=== PATIENT | female | born 1965 | race Caucasian/White ===

== ENCOUNTER 2017-01-01 11:37 | Outpatient (CLI) | payer BC ==
[~2017-01-01] VITALS: Ht 167.6 cm; Wt 100.2 kg
[~2017-01-01 11:37] MED LIST: LEVO137T2 PO; VITA100067 PO; VITA500T PO
[2017-01-01] MEDS ORDERED: NS 1,000 ML IV SCH (12:45)
[2017-01-01] MEDS ORDERED: PROPOFOL 200 MG/20 ML VIAL As Ordered ONE ×2 (13:45→13:59)
[2017-01-01] MEDS ORDERED: LIDOCAINE 2% INJ 100 MG/5 ML SDV (FOR ANES.) As Ordered ONE (13:45)
--- NOTE | 2017-01-01 14:01 | ROOR ---
Patient Name: Stephanie Sun Procedure Date: 01/01/2017 1:46 PM Date of : 1965 Age: 51 Room: [facility] Gender: Female Note Status: Finalized Procedure: Colonoscopy Indications: Screening for colorectal malignant neoplasm Providers: Elmer THOMPSON MD Referring MD: DORINA PARK DO Requesting Provider: Medicines: Monitored Anesthesia Care Complications: No immediate complications. Procedure: Pre-Anesthesia Assessment: - The heart rate, respiratory rate, oxygen saturations, blood pressure, adequacy of pulmonary ventilation, and response to care were monitored throughout the procedure. The Colonoscope was introduced through the anus and advanced to the terminal ileum, with identification of the appendiceal orifice and IC valve. The colonoscopy was performed without difficulty. The patient tolerated the procedure well. The quality of the bowel preparation was good. Findings: The perianal and digital rectal examinations were normal. (Exam: Complete, Prep: Good or Excellent.) Mild diverticulosis and small internal hemorrhoids. The entire examined colon appeared normal on direct and retroflexion views. Impression: - (Exam: Complete, Prep: Good or Excellent.) - Mild diverticulosis and small internal hemorrhoids. - The entire examined colon is normal on direct and retroflexion views. - No specimens collected. Recommendation: - Repeat colonoscopy in 10 years for screening purposes. Elmer Thompson MD Elmer THOMPSON MD 01/01/2017 2:01:30 PM This report has been signed electronically. Number of Addenda: 0 Note Initiated On: 01/01/2017 1:46 PM Estimated Blood Loss: Estimated blood loss: none.
[2017-01-01 14:20] VITALS: BP 156/90
== END 2017-01-01 14:30 | disposition home or self-care (01) ==
LOC: M OPP 11:37
PROVIDERS: ATTEND Internal Medicine Gastroenterology
DX: Z12.11 Encounter for screening for malignant neoplasm of colon (principal); K57.30 Diverticulosis of large intestine without perforation or abscess without bleeding; K64.8 Other hemorrhoids; E03.9 Hypothyroidism, unspecified; R60.0 Localized edema; Z78.0 Asymptomatic menopausal state; F17.210 Nicotine dependence, cigarettes, uncomplicated; Z79.899 Other long term (current) drug therapy; Z80.41 Family history of malignant neoplasm of ovary

== ENCOUNTER → 2019-02-02 | Outpatient (CLI) | payer OTHER ==
[~2019-02-02] MED LIST changes: +LEVO150T7 PO; +MELO15TA28 PO
--- NOTE | 2019-02-02 09:14 | ECGEPIP ---
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
== END ==
LOC: M EKG 08:38
PROVIDERS: ATTEND Anesthesiology
DX: Z01.818 Encounter for other preprocedural examination (principal); E03.9 Hypothyroidism, unspecified; L40.9 Psoriasis, unspecified

== ENCOUNTER 2019-02-06 11:58 | Day surgery (SDC) | payer OTHER ==
[~2019-02-06] VITALS: Ht 198.1 cm; Wt 107.0 kg
[~2019-02-06 11:58] MED LIST changes: +LR 1,000 ML IV ONE
[2019-02-06] MEDS ORDERED: BUPIVACAINE/EPIN 0.25% 30 ML VIAL As Ordered ONE (16:27)
[2019-02-06] MEDS ORDERED: LIDOCAINE 2% INJ 100 MG/5 ML SDV (FOR ANES.) As Ordered ONE (16:47)
[2019-02-06] MEDS ORDERED: fentaNYL 250 MCG/5 ML INJECTION (J3010) As Ordered ONE (16:47)
[2019-02-06] MEDS ORDERED: METOCLOPRAMIDE INJ 10MG/2ML VIAL (J2765) As Ordered ONE (16:47)
[2019-02-06] MEDS ORDERED: PROPOFOL 200 MG/20 ML VIAL As Ordered ONE (16:47)
[2019-02-06] MEDS ORDERED: dexameTHASONE 4 MG/ML 1ML VIAL (J1100) As Ordered ONE (16:47)
[2019-02-06] MEDS ORDERED: ONDANSETRON 4MG/2ML VIAL (J2405) As Ordered ONE (16:47)
[2019-02-06] MEDS ORDERED: KETOROLAC 60 MG/2 ML VIAL (J1885) As Ordered ONE (16:47)
[2019-02-06] MEDS ORDERED: SUGAMMADEX SODIUM 500 MG/5 ML VIAL (BRIDION) As Ordered ONE (16:47)
[2019-02-06] MEDS ORDERED: ROCURONIUM BROMIDE 50 MG/5 ML VIAL As Ordered ONE ×2 (16:47→17:22)
[2019-02-06] MEDS ORDERED: MIDAZOLAM INJ 2 MG/2 ML VIAL (J2250) As Ordered ONE (16:47)
[2019-02-06] MEDS ORDERED: ePHEDrine SULFATE 25 MG/5 ML(5MG/ML) SYRINGE As Ordered ONE (17:06)
[2019-02-06] MEDS ORDERED: ACETAMINOPHEN 1000MG 100ML IV BTL (OFIRMEV) (J0131 PER 10MG) As Ordered ONE (17:11)
[2019-02-06] MEDS ORDERED: NORCO, ANEXSIA 5/325MG TABLET (HYDROcodone/ACETAMINOPHEN) PO PRN (18:30)
[2019-02-06] MEDS ORDERED: LR 1,000 ML IV SCH (18:45)
[2019-02-06] MEDS ORDERED: METOCLOPRAMIDE INJ 10MG/2ML VIAL (J2765) IV PRN (18:45)
[2019-02-06] MEDS ORDERED: ONDANSETRON 4MG/2ML VIAL (J2405) IV PRN (18:45)
[2019-02-06] MEDS ORDERED: fentaNYL 100 MCG/2 ML INJECTION (J3010) IV PRN (18:45)
[2019-02-06] MEDS ORDERED: PERCOCET 5MG/325MG TAB PO PRN (18:45)
[2019-02-06 20:20] VITALS: BP 147/79
--- NOTE | 2019-02-09 09:35 | RO ---
DATE OF PROCEDURE: 02/06/2019 PREOPERATIVE DIAGNOSIS: Symptomatic cholelithiasis. POSTOPERATIVE DIAGNOSIS: Symptomatic cholelithiasis. PROCEDURE: Robotic cholecystectomy. SURGEON: Dr. Ang Villalpando. QUALITY SYSTEMS TECHNICIAN: None. ANESTHESIA: General ESTIMATED BLOOD LOSS: 5 COMPLICATIONS: None. INDICATION FOR PROCEDURE: The patient is a 53-year-old female who presents with right upper quadrant pain, found have symptomatic cholelithiasis. Recommendations to proceed with robotic cholecystectomy. Risks and benefits of the procedure not limited to but including bleeding, infection, hernia formation, damage to surrounding structure, need for further surgery discussed detail with the patient. Informed consent was obtained procedure was planned. DESCRIPTION OF PROCEDURE: The patient brought to operating room 7. After sufficient sedation the abdomen was sterilely prepped and draped. Next time-out was done to confirm proper patient, proper procedure. Following that, 8 mm incision made in the left lower quadrant. Veress needle inserted and the abdomen was insufflated to 15 mmHg. Veress needle was removed and an 8 mm OptiView port was used to gain access to the abdomen. Once the abdomen was entered another three more 8 mm robotic ports were placed along the upper abdomen. Fundus of gallbladder was elevated up towards the right shoulder. Cystic duct and cystic artery were carefully dissected free using combination of blunt and sharp dissection. Then the cystic duct and cystic artery were both doubly clipped and cut and the gallbladder was then dissected free from the gallbladder fossa using electrocautery. It was removed intact, placed inside of a 5 mm EndoCatch bag and brought out through the most right lateral port site. Once the gallbladder was removed, I used a #2-0 V-Loc suture to close the fascial defect from the inside. Once that was completed, the abdomen was desufflated. The skin incisions were closed #4-0 Vicryl subcuticular sutures. The abdomen was cleaned and dried. Steri-Strips, 4x4 and tape were applied thus ending the procedure.
== END 2019-02-06 20:25 | disposition home or self-care (01) ==
LOC: M SDC 11:58
PROVIDERS: ATTEND Surgery
DX: K80.10 Calculus of gallbladder with chronic cholecystitis without obstruction (principal); E03.9 Hypothyroidism, unspecified; M17.0 Bilateral primary osteoarthritis of knee; M19.041 Primary osteoarthritis, right hand; M19.042 Primary osteoarthritis, left hand; L40.9 Psoriasis, unspecified; Z79.899 Other long term (current) drug therapy
CPT/HCPCS: 47562; 88304; J0131; J1100; J1885; J2250; J2405; J2765; J3010